=== PATIENT | female | born 1990 | race Caucasian/White ===

== ENCOUNTER → 2024-03-05 09:12 | Outpatient (REF) | payer BC, SELFPAY | LOC: WDC 09:12 | PROVIDERS: ATTENDING PHYSICIAN Obstetrics & Gynecology; FAMILY PHYSICIAN Emergency Medicine | DX: N63.0 Unspecified lump in unspecified breast (principal); N63.21 Unspecified lump in the left breast, upper outer quadrant | CPT/HCPCS: 76642; 77062; 77066 ==

== ENCOUNTER → 2025-02-25 15:03 | Outpatient (REF) | payer BC, SELFPAY | LOC: HWRAD 15:03 | PROVIDERS: ATTENDING PHYSICIAN Emergency Medicine | DX: R10.11 Right upper quadrant pain (principal) | CPT/HCPCS: 76700 ==

== ENCOUNTER → 2025-03-09 03:08 | Emergency (ER) | payer BC, SELFPAY ==
[2025-03-09 03:16] VITALS: BP 120/78
[2025-03-09 03:30] VITALS: BP 104/76
[2025-03-09 03:35] LABS: % Basophils 0.5 % (0-2); % Eosinophils 2.7 % (0-6); % Immature Granulocytes 0.1 % (0-0.5); % Lymphocytes 38.9 % (20.5-51.1); % Neutrophils 49.8 % (42.2-75.2); Absolute Basophils 0.1 10^3/uL (0-0.2); Absolute Eosinophils 0.3 10^3/uL (0-0.7); Absolute Lymphocytes 3.6 10^3/uL (1.2-3.4); Absolute Monocytes 0.7 10^3/uL (0.1-0.6); Absolute Neutrophils 4.5 10^3/uL (1.4-6.5); Hemoglobin 15.4 g/dL (12.0-16.0); Mean Corp Hgb Conc. 35.8 g/dL (33.0-37.0); Mean Corpuscular Hgb 32.7 pg (27.0-31.0); Mean Corpuscular Volume 91.3 fL (81.0-99.0); Mean Platelet Volume 9.8 fL (7.4-10.4); Nucleated Red Blood Cells % 0 %; Platelet Count 254 10^3/uL (130-400); Red Blood Cell Count 4.71 10^6/uL (4.20-5.40); Red Cell Dist. Width 11.6 % (11.5-14.5); White Blood Cell Count 9.1 10^3/uL (4.8-10.8)
[2025-03-09 03:48] LABS: HCG, Serum Qualitative Screen Negative
[2025-03-09 03:52] LABS: ALT (SGPT) 16 U/L (0-35); AST (SGOT) 22 U/L (14-36); Albumin 5.1 g/dl (3.5-5.0); Alkaline Phosphatase 39 U/L (38-126); Blood Urea Nitrogen 29 mg/dl (7-17); Calcium 9.4 mg/dl (8.4-10.2); Carbon Dioxide 24 mmol/L (22-30); Chloride 107 mmol/L (98-107); Glucose 105 mg/dl (70-99); Potassium 4.5 mmol/L (3.5-5.1); Sodium 142 mmol/L (135-145); Total Bilirubin 0.6 mg/dl (0.2-1.3); eGFR > 60.00
[2025-03-09 04:00] VITALS: BP 102/75
[2025-03-09 05:00] VITALS: BP 108/69
--- NOTE | 2025-03-09 05:54 | ED.GENMED ---
History of Present Illness
General
Chief Complaint: Fainting Sensation
Source: patient and ambulance crew
Exam Limitations: none
Time Seen by Provider: 03/09/25 05:45
Nursing documentation reviewed up to this point in time: agreed with
History of Present Illness
History of Present Illness:
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 No history of similar episodes in the past. Symptoms persisted despite
lying supine thus called 911.
Feeling improved since arrival to the ED without return of symptoms.
She exercises on a regular basis, Pilates and was concerned with some left posterior calf pain that began 1 to 2 days ago. She denies cough no shortness of breath, no dyspnea on exertion, no chest pain. She denies risk of .
She does note some chronic ongoing abdominal discomfort, burning in nature more so at nighttime and primarily located epigastric, right upper quadrant as well as right lower quadrant.
Has been taking Protonix over the past month, no relief.
Upon review of records patient has been evaluated in this ED for somewhat similar abdominal pain complaints December 2021, January 2016. Unremarkable ED evaluations including unremarkable CT abdomen pelvis on those visits.
Abdominal ultrasound February of this year unremarkable. 3 mm gallbladder wall polyp, otherwise unremarkable.
Past History
Past History
ED Past Medical History: Psychiatric (Anxiety and depression) and Other (Ovarian cyst, chronic abdominal pain)
ED Past Surgical History: Orthopedic (Right knee meniscus repair)
Social History
Tobacco: Non-smoker
Alcohol: None
Drug: None
Personal: Single
Living: with family
Employment: Employed
Family History
Family History: Other (diverticulitis)
Phy Exam
Physical Exam
Physical Exam:
GENERAL: 34-year-old female appears her stated age, awake and alert, pleasant, appears in no acute distress.
EYE: anicteric
NECK: Supple, nontender, no meningismus, no significant adenopathy.
ENT: oral mucosa is moist. No rhinorrhea.
CARDIAC: Regular rate and rhythm. no murmur.
LUNGS: Clear breath sounds bilaterally, no acute respiratory distress, no wheezes/rales/rhonchi
ABDOMEN: Soft, nondistended, mild tenderness with deep palpation epigastric region as well as mildly to the right lower quadrant, no r/g, no cvat. normoactive BS. No palpable masses.
NEUROLOGICAL: Alert and oriented x3, no focal neuro deficits.
SKIN: Warm and dry, normal color, skin intact. No rash.
MUSCULOSKELETAL: No C/C/E. peripheral pulses are full and equal b/l. No palpable tenderness. Negative Homans.
PSYCH: Normal and appropriate interaction.
Course
Orders/Labs/Results
Orders:
Orders
03/09/25 03:17
Test Result ONCE
03/09/25 03:25
Complete Blood Count/With Diff Urgent
Comprehensive Metabolic Panel Urgent
HCG, Serum Qualitative Screen Urgent
03/09/25 05:53
Electrocardiogram (*1) Urgent
Reason for Study: Syncope
CT Abd/pelvis W Iv Cont Urgent
Comment:
Reason For Exam: EPIGASTRIC TO RLQ pain
EKG- Treatment ONCE
0.9% Sodium Chloride 1000 ml [Nss] 1,000 ml IV BOLUS
03/09/25 06:04
Orthostatic VS- Treatment ONCE
03/09/25 06:06
Ondansetron Injectable [Zofran] 4 mg IV NOW STA
03/09/25 06:07
Ondansetron Injectable [Zofran] 4 mg .ROUTE .STK-MED ONE
Abnormal Lab Results
03/09/25
03:25
MCH 32.7 H pg
(27.0-31.0)
Absolute Lymphs (auto) 3.6 H 10^3/uL
(1.2-3.4)
Absolute Monos (auto) 0.7 H 10^3/uL
(0.1-0.6)
BUN 29 H mg/dl
(7-17)
Glucose 105 H mg/dl
(70-99)
Albumin 5.1 H g/dl
(3.5-5.0)
03/09/25 03:25
03/09/25 03:25
Vital Signs
Initial and Last Documented VS:
Initial Vital Signs
Pulse Ox
98
03/09/25 03:10
Last Documented Vital Signs
Temp Pulse Resp BP Pulse Ox
98.2 F 79 20 111/67 97
03/09/25 03:26 03/09/25 06:00 03/09/25 06:00 03/09/25 06:00 03/09/25 05:55
MDM/Problems Addressed
Differential Diagnosis Includes:
History and exam most consistent with vasovagal near syncope. Must consider electrolyte abnormality, arrhythmia.
Patient also notes some ongoing abdominal discomfort, most often at nighttime and similar complaints noted on ED visits going back as far as 2015.
She remains hemodynamically stable. Monitor shows normal sinus rhythm.
Labs are unremarkable save for mild to moderate prerenal azotemia suggesting an element of dehydration. We have been experiencing significantly hot, humid weather more recently.
Will hydrate with IV fluids, check EKG and will check CT abdomen pelvis.
*Radiology
Radiology exam reviewed: radiology read reviewed (CT abdomen pelvis is unremarkable. There is note of benign-appearing 1.7 cm right ovarian cyst.)
*Pulse Oximetry
SaO2: 97
Oxygen Mode of Delivery: Room air
Patient hypoxic: no
*EKG
Interpreted by ED Provider?: Yes
Interpretation: normal
Comparison EKG: no comparison EKG present
Rate: normal
Rhythm: sinus
[place]: normal axis
Interval: normal interval
QRS Pattern: normal QRS
Ischemia: no ischemia
*Sash Maker Interpretation
Rate: normal
Interpretation: normal
Rhythm: sinus
*Critical Care Note
Total Time (30-74mins, 75-104mins- exclusive of procedures): Not Applicable
Update Note
Update Note:
07:30
Patient feeling improved after IV fluids.
CT abdomen pelvis is unremarkable.
Discussed importance of staying well-hydrated on a daily basis.
Avoid rapid standing.
Due to ongoing abdominal pain, no improvement with PPI recommend further evaluation with gastroenterology.
ED Attending Note
-
Portions of this chart may have been created with voice recognition software.� Occasional wrong word or��sound alike� substitutions may have occurred due to the inherent limitations of voice recognition software.
Discharge Plan
Departure
Patient Disposition: Home (Routine Discharge)
Date of Disposition: 03/09/25
Time of Disposition: 07:26
Patient with high blood pressure during this ER visit?: No
Condition: Good
Discharge Problem:
Vasovagal near syncope, Chronic abdominal pain
Instructions: Near Fainting (DC)
Prescriptions:
No Action
etonogestrel-ethinyl estradiol [NuvaRing] 1 VAG.RING ring
1 vag.ring VG MONTHLY
duloxetine 60 MG capsule,delayed release(DR/EC)
60 mg PO DAILY
dicyclomine 20 MG tablet
20 mg PO QID Qty: 0 0RF
dicyclomine 20 MG tablet
20 mg PO QIDPRN PRN (Reason: cramps) Qty: 10 0RF
alum-mag hydroxide-simeth [Mag-Al Plus] 30 ML suspension
30 ml PO QIDPRN PRN (Reason: pain) Qty: 20 0RF
Referrals:
Elin Padilla DO [Emergency Provider, Emergency]
Rosalba Wiseman DO [Active, Gastroenterology] - Call in 1-3 days for appt
Interventions
Interventions:
*Risk Screen - Suicide Last Done: 03/09/25 03:10
*General Assessment Last Done: 03/09/25 03:10
*Neglect/Abuse Screening Last Done: 03/09/25 03:10
*ED- Fall Risk Assessment Last Done: 03/09/25 03:10
*ED COVID-19 Vaccine History Last Done: 03/09/25 03:10
ED- Cardiac Assessment Last Done: 03/09/25 03:10
ED- Neurological Assessment Last Done: 03/09/25 03:10
Discharge Date and Time
Print Language: ALBANIAN
[2025-03-09 06:00] VITALS: BP 111/67
[2025-03-09] MEDS: ZOFRAN 4 MG IV (06:08)
[2025-03-09] MEDS: NSS 1000 IV (06:08)
[2025-03-09 06:41] VITALS: BP 100/70; BP 102/63; BP 111/92; PULSE 103; PULSE 77; PULSE 87
== END | disposition home or self-care (01) ==
LOC: EMR 03:08
PROVIDERS: EMERGENCY PHYSICIAN Emergency Medicine
DX: R55 Syncope and collapse (principal); R10.13 Epigastric pain; R11.0 Nausea; M79.662 Pain in left lower leg; R10.11 Right upper quadrant pain; R10.31 Right lower quadrant pain; R79.89 Other specified abnormal findings of blood chemistry; G89.29 Other chronic pain; F41.9 Anxiety disorder, unspecified; F32.A Depression, unspecified; N83.201 Unspecified ovarian cyst, right side
CPT/HCPCS: 99284; 96361; 96374; 74177; 80053; 84703; 85025; 93005; Q9967